=== PATIENT | male | born 1985 ===

== ENCOUNTER 2020-02-06 09:57 | Emergency (ER) | payer SELFPAY ==
[~2020-02-06] VITALS: Ht 188 cm; Wt 115.9 kg
[2020-02-06 10:00] VITALS: BP 126/69; Ht 188 cm; Wt 115.9 kg
[2020-02-06] MEDS ORDERED: [UNRECOGNIZED DRUG - REMARK] (10:01)
[2020-02-06] MEDS ORDERED: CYCLOBENZAPRINE10 MG PO (10:50)
[2020-02-06] MEDS ORDERED: IBUPROFEN800 MG PO (10:50)
[2020-02-06] MEDS ORDERED: ACETAMINOPHEN500 M1 PO (10:50)
== END 2020-02-06 12:16 | disposition home or self-care (01) ==
LOC: D.ER 09:57
DX: M51.34 Other intervertebral disc degeneration, thoracic region (principal); M79.18 Myalgia, other site; V89.2XXA Person injured in unspecified motor-vehicle accident, traffic, initial encounter; Y93.9 Activity, unspecified; Y92.9 Unspecified place or not applicable